=== PATIENT | female | born 1945 | race Caucasian/White ===

== ENCOUNTER 2017-02-06 05:47 | Day surgery (SDC) | payer OTHER ==
[2017-01-21 09:42] VITALS: Ht 160 cm; Wt 69.3 kg
--- NOTE | 2017-01-21 10:19 | PAT Medication Instructions ---
Service Date Jan 21, 2017. Current Home Medication List Albuterol (Proair Hfa), 2 PUFFS INH Q4HR PRN Mykbxki-Rwtwxowspqgpb-Lyxglloy (Excedrin Extra Strength), 1 TAB PO PRN B-Complex Vitamins (Vitamin B Complex), 1 TAB PO QAM Cholecalciferol (Vitamin D3), 1,000 UNIT PO QAM Fexofenadine Hcl ([place] Unknown Dose), 180 MG PO QAM PRN for PRN Lorazepam (Ativan), 0.5-1 MG PO HS PRN Multiple Vitamin (Multivitamin), 1 TAB PO QAM Probiotic Product (Probiotic), 1 CAP PO PRN Selenium (Hm Selenium), 100 MCG PO QAM Simethicone (Gas-X), 80 MG PO DAILY PRN for Gas or Constipation [Biotin], 1,000 MG PO QAM [Magnesium], 250 MG PO BID PRN for PRN [Potassium], 75 MG PO QAM Medication Instructions For Your Scheduled Surgery - Check with surgeon for instructions: Zcloxzz-Fbshhvgnwvmfr-Stuyitxe (Excedrin Extra Strength), 1 TAB PO PRN - Hold the following medications the morning of surgery: [Magnesium], 250 MG PO BID PRN for PRN [Potassium], 75 MG PO QAM [Biotin], 1,000 MG PO QAM Selenium (Hm Selenium), 100 MCG PO QAM Simethicone (Gas-X), 80 MG PO DAILY PRN for Gas or Constipation Probiotic Product (Probiotic), 1 CAP PO PRN Multiple Vitamin (Multivitamin), 1 TAB PO QAM B-Complex Vitamins (Vitamin B Complex), 1 TAB PO QAM Cholecalciferol (Vitamin D3), 1,000 UNIT PO QAM Fexofenadine Hcl ([place] Unknown Dose), 180 MG PO QAM PRN for PRN - Take the following medications the morning of surgery with a sip of water: Lorazepam (Ativan), 0.5-1 MG PO HS PRN (if needed) Albuterol (Proair Hfa), 2 PUFFS INH Q4HR PRN (use if needed; bring with you to hospital morning of surgery) - Take the following medications as scheduled the night before surgery: [Magnesium], 250 MG PO BID PRN for PRN (if needed) Simethicone (Gas-X), 80 MG PO DAILY PRN for Gas or Constipation (if needed) Probiotic Product (Probiotic), 1 CAP PO PRN (if needed) Lorazepam (Ativan), 0.5-1 MG PO HS PRN (if needed) Fexofenadine Hcl ([place] Unknown Dose), 180 MG PO QAM PRN for PRN (if needed) Albuterol (Proair Hfa), 2 PUFFS INH Q4HR PRN (if needed) If you have any questions please call us at [phone] or [phone] or [phone]
[2017-01-21 11:54] LABS: BASO % 0.3 %; BASO ABS # 0.02 K/uL (0-0.2); COMPLETE YES; EOS % 0.8 %; HEMATOCRIT 45.7 % (37-47); IG% 0.3 %; LYMPH % 23.2 %; LYMPH ABS # 1.53 K/uL (1.2-3.4); MEAN CELL VOLUME 92.1 fL (80-100); MEAN CORPUSCULAR HEMOGLOBIN 30.6 pg (25-34); MEAN CORPUSCULAR HGB CONC 33.3 g/dl (32-36); MEAN PLATELET VOLUME 10.8 fL (7.4-10.4); MONO % 8.3 %; NEUT % 67.1 %; PLATELET COUNT 405 K/uL (130-400); RED BLOOD COUNT 4.96 M/uL (4.2-5.4)
[2017-01-21 12:03] LABS: INR 0.9 (0.9-1.1); PARTIAL THROMBOPLASTIN RATIO 1.2
[2017-01-21 12:14] LABS: BUN/CREATININE RATIO 18.6 (10-20); CALCIUM 9.6 mg/dl (8.5-10.1); CREATININE 0.74 mg/dl (0.60-1.20); POTASSIUM 3.8 mmol/L (3.5-5.1)
--- NOTE | 2017-02-05 15:33 | History and Physical ---
History & Physical Date Feb 05, 2017. Chief Complaint right foot pain History of Present Illness The patient is a 71 year old female with complaints of right great toe pain. She had x-rays which noted DJD of the 1st MTP joint. She was treated conservatively with activity modification, injections, NSAIDS but she failed conservative management. She is being set up for surgical tx. Past Medical/Surgical History Surgical Problems: (1) History of colon resection Allergies Coded Allergies: Sucralfate (Verified Allergy, Severe, throat swelling and pain, 01/21/17) Carbapenems (Verified Allergy, Intermediate, can't tolerate, 01/21/17) Cephalosporins (Verified Allergy, Intermediate, can't tolerate, 01/21/17) Penicillins (Verified Allergy, Intermediate, HIVES, 01/21/17) Omeprazole (Verified Allergy, Unknown, UNKNOWN, 01/21/17) tingling of lips and tongue Pseudoephedrine (Verified Allergy, Unknown, UNKNOWN, 01/21/17) insomnia, dry mouth and tongue, anxious Alendronate (Verified Adverse Reaction, Mild, ACID REFLUX, 01/21/17) Prochlorperazine (Verified Adverse Reaction, Unknown, JAW PAIN;SPASM OF LIP, 01/21/17) Home Medications Scheduled Albuterol (Proair Hfa), 2 PUFFS INH Q4HR PRN Aixtvat-Ltleizacvuihq-Lotxhbbg (Excedrin Extra Strength), 1 TAB PO PRN B-Complex Vitamins (Vitamin B Complex), 1 TAB PO QAM Cholecalciferol (Vitamin D3), 1,000 UNIT PO QAM Lorazepam (Ativan), 0.5-1 MG PO HS PRN Multiple Vitamin (Multivitamin), 1 TAB PO QAM Probiotic Product (Probiotic), 1 CAP PO PRN Selenium (Hm Selenium), 100 MCG PO QAM [Biotin], 1,000 MG PO QAM [Potassium], 75 MG PO QAM Scheduled PRN Fexofenadine Hcl ([place] Unknown Dose), 180 MG PO QAM PRN for PRN Simethicone (Gas-X), 80 MG PO DAILY PRN for Gas or Constipation [Magnesium], 250 MG PO BID PRN for PRN Physical Examination Skin: warm/dry, no rash Eyes: normal inspection Head: normocephalic, atraumatic Neck: supple Respiratory/Chest: lungs clear, normal breath sounds, no respiratory distress Cardiovascular: regular rate, rhythm, no murmur Abdomen / GI: normal bowel sounds, non tender Extremities: + pertinent finding (Right foot: swelling of the 1st MTP joint. Tender to palpation at the 1st MTP. Pain with PROM and AROM of the 1st MTP joint. Crepitation noted.) Neurologic/Psych: no motor/sensory deficits, alert, oriented x 3 Diagnosis Right 1st MTP DJD/Hallux rigidus. Plan of Treatment Recommend a right 1st MTP Arthrosurface hemiarthroplasty. All potential risks, benefits, complications, alternatives and rehab have been discussed and the patient wishes to proceed. She will be schedule for 02.06.17 with ASA 81 mg BID for 4 wks post op for DVT prophylaxis.
[~2017-02-06] VITALS: Ht 160 cm; Wt 69.3 kg
[~2017-02-06 05:47] MED LIST: ALBU1AER9 INH; ALLGUNK PO; ASPI-391 PO; ATV/1 PO; B-COTAB18 PO; BIOTPOW17 PO; MAGNESIUM PO; MISCCAP80 PO; MULTTAB58 PO; POTASSIUM PO; SELE1TAB10 PO; SIME80CH PO; VTMD1000 PO
[2017-02-06] MEDS ORDERED: CLINDAMYCIN 600 MG/54 ML D5W IV SCH (06:00)
[2017-02-06] MEDS ORDERED: LACTATED RINGER'S 1000ML 1,000 ML IV SCH (06:00)
[2017-02-06] MEDS ORDERED: ONDANSETRON INJ 2 MG/ML 2 ML VIAL IV PRN (06:15)
[2017-02-06] MEDS ORDERED: HYDROmorphone INJ 1 MG/ML SYR IV PRN (06:15)
[2017-02-06] MEDS ORDERED: FENTANYL CITRATE INJ 50 MCG/1 ML 2 ML VIAL IV PRN (06:15)
[2017-02-06] MEDS ORDERED: ATROPINE SULFATE 0.1 MG/ML 5ML SYR IV PRN (06:15)
[2017-02-06] MEDS ORDERED: DEXT30TA7 PO (06:31)
[2017-02-06] MEDS ORDERED: BACITRACIN 50000 UNIT VIAL ONE (06:55)
[2017-02-06] MEDS ORDERED: DEXAMETHASONE SOD INJ 4 MG/ML VIAL ONE (07:02)
[2017-02-06] MEDS ORDERED: ONDANSETRON INJ 2 MG/ML 2 ML VIAL ONE (07:02)
[2017-02-06] MEDS ORDERED: PROPOFOL IV EMULSION 10 MG/ML 20 ML VIAL IV ONE (07:02)
[2017-02-06] MEDS ORDERED: LIDOCAINE HCL 2% 2 ML VIAL (20MG/ML) ONE (07:02)
[2017-02-06] MEDS ORDERED: FENTANYL CITRATE INJ 50 MCG/1 ML 2 ML VIAL ONE (07:03)
[2017-02-06] MEDS ORDERED: MIDAZOLAM HCL 1 MG/ML 2ML VIAL ONE (07:03)
--- NOTE | 2017-02-06 07:04 | DIAGNOSTIC IMAGING REPORT ---
TWO VIEW CHEST CLINICAL HISTORY: Preoperative examination. FINDINGS: PA and lateral chest radiographs are compared to chest x-ray and chest CT dated 10/04/2015. The cardiomediastinal silhouette is unremarkable. There is atherosclerotic calcification of the thoracic aorta. The lungs and pleural spaces are clear. There is no pneumothorax. The skeletal structures are osteopenic. There are healed right-sided rib fractures. Cholecystectomy clips are noted in the right upper quadrant. IMPRESSION: No active disease in the chest. Electronically signed by: Facundo Sanches M.D. 02/06/2017 7:03 AM Dictated Date/Time: 02/06/2017 7:02 AM
[2017-02-06] MEDS ORDERED: ROPIVACAINE 0.5% 5 MG/ML 30 ML VIAL ONE (07:15)
--- NOTE | 2017-02-06 07:28 | History & Physical Bridge Note ---
H&P Re-Evaluation Bridge Note: I have examined the patient, reviewed the History & Physical and in the interval since the performance of the History & Physical I have noted the following changes of clinical significance: No changes noted
[2017-02-06] MEDS ORDERED: ASPEC81 PO (08:07)
[2017-02-06] MEDS ORDERED: OXYC-57 PO (08:07)
--- NOTE | 2017-02-06 08:10 | Discharge Instructions ---
Discharge Instructions Date of Service Feb 06, 2017. Admission Reason for Admission: Right Great Toe Degenerative Joint Disease; Hallux Discharge Discharge Diagnosis / Problem: Right great toe degenerative joint disease Discharge Goals Goal(s): Decrease discomfort, Improve function Activity Recommendations Activity Limitations: per Instructions/Follow-up section Weightbearing Status: Right partial (Heel Weightbearing only in post op shoe) . Instructions / Follow-Up Instructions / Follow-Up ACTIVITY RECOMMENDATIONS: Limitations: Heel weight bearing only if able to tolerate. SPECIAL CARE INSTRUCTIONS: * You may start gentle passive range of motion with the right great toe after 3 days. You may use your hands for gentle motion of the toe. * Some drainage onto the dressing is normal and is no cause for alarm. * Some swelling is natural especially after walking. * When resting, keep your foot elevated above the level of your heart. * Call [facility] if you notice: -Increased drainage -Fever over 101 degrees F -Severe constant pain BANDAGE: * Leave bandage/cast in place unless otherwise directed. * Keep bandage/cast dry at all times. PIN CARE: * Leave pins alone. * If pins come loose or fall out, notify physician. FOLLOW UP VISIT WITH DR. ESPINOSA If appointment is not already scheduled: Please call [facility] after you get home today to schedule a follow-up appointment for [address] Espinosa at . Current Hospital Diet Patient's current hospital diet: Discharge Diet Recommended Diet: Regular Diet Procedures Procedures Performed: Right Great Toe 1st Metatarsophalangeal Arthrosurface Hemiarthroplasty Pending Studies Studies pending at discharge: no Medical Emergencies . Who to Call and When: Medical Emergencies: If at any time you feel your situation is an emergency, please call 911 immediately. . Non-Emergent Contact Non-Emergency issues call your: Surgeon Call Non-Emergent contact if: temperature is above 101, your pain is not controlled, your pain is worsening, wound has increased drainage . "Provider Documentation" section prepared by Jeancarlos Rudolph. . VTE Core Measure Inpt VTE Proph given/why not?: Other Anticoagulation (Aspirin)
[2017-02-06] MEDS ORDERED: OXYCODONE/ACETAMINOPHEN 5-325 TAB PO PRN (08:15)
[2017-02-06] MEDS ORDERED: EpHEDrine SULFATE 50MG/5ML SYR ONE (09:14)
[2017-02-06] MEDS ORDERED: PHENYLEPHRINE 100MCG/ML 5ML SYR ONE (09:14)
--- NOTE | 2017-02-06 09:35 | Anesthesiology Progress Note ---
Anesthesia Post Op Note Date & Time Feb 06, 2017 at 09:35 Vital Signs Pain Intensity: 0 Vital Signs Past 12 Hours Date Time Temp Pulse Resp B/P (MAP) Pulse Ox O2 Delivery O2 Flow Rate FiO2 02/06/17 09:25 78 16 144/79 99 Nasal Cannula 2 02/06/17 09:15 82 18 136/77 99 Oxymask 10 02/06/17 09:06 36.7 82 18 143/86 99 Oxymask 10 Notes Mental Status: alert / awake / arousable, participated in evaluation Pt Amnestic to Procedure: Yes Nausea / Vomiting: adequately controlled Pain: adequately controlled Airway Patency, RR, SpO2: stable & adequate BP & HR: stable & adequate Hydration State: stable & adequate Anesthetic Complications: no major complications apparent
--- NOTE | 2017-02-06 09:36 | [facility] Operative Report ---
Operative Report Operative Date Feb 06, 2017. Pre-Operative Diagnosis Right Great Toe 1st Metatarsophalangeal degnerative joint disease, Hallux Rigidus Post-Operative Diagnosis Right Great Toe 1st Metatarsophalangeal degnerative joint disease, Hallux Rigidus Procedure(s) Performed Right Great Toe 1st Metatarsophalangeal Arthrosurface Hemiarthroplasty Surgeon Dr. Carias Brim Buster Surgeon(s) Jeancarlos Rudolph PA-C Estimated Blood Loss 1 ML Findings See dictation Specimens NONE Drains none Anesthesia Gen. LMA with popliteal block Complication(s) None Disposition Recovery Room / PACU Indications This is a 71-year-old female who's had chronic progressive and worsening right foot pain and deformity. His had worsening arthritis and failed all conservative measures including anti-inflammatories, rest, shoewear modification , steroid injections, activity modification, ice and elevation. She had radiographic evidence of near-complete loss of the joint space the first metatarsophalangeal joint with associated marginal osteophytes and subchondral sclerosis. She was scheduled for surgery as indicated. Description of Procedure All potential risks, benefits, complications, alternatives, rehabilitation, potential for incomplete relief of symptoms, need for further surgery, persistent numbness, weakness, stiffness, persistent pain, DVT, PE, , bone fracture, hardware breakage, nonunion, malunion or wound complications were discussed with the patient. The patient decided to proceed with the procedure as indicated. Procedure: The patient was taken to the operative suite and placed supine on the operating table. She received a popliteal block in the preoperative holding area. The right lower extremity was then sterilely prepped and draped in usual fashion after defecation the proper operative site and review of the consent. Right lower extremity was then exsanguinated with Esmarch bandage and an Esmarch tourniquet was applied over sterile surgical tile at level of the ankle. 15 blade scalpel was used to make an incision of the dorsum the right foot first metatarsalgia joint. This incision was then deepened to the subcutaneous tissue. Meticulous hemostasis was achieved with cautery. Extensor hallucis longus identified, freed with a scalpel and careful dissection around the tendon and retracted laterally with a weave manner. Next the dorsal capsule was then incised with 15 blade scalpel and elevated both medially and laterally. The hypertrophic synovial lining was then resected with a rongeur. Next the articular surfaces were examined and noted to have significant degenerative arthropathy. There is near complete articular cartilage loss. Marginal osteophytes and resected with a rongeur. Next underlie fluoroscopic assistance guidepin was placed within the central canal of the first metatarsal. This then followed by drilling of the first metatarsal with a graduated drill. Next irrigation was performed with sterile normal saline. The threaded posts was then inserted and the first metatarsal and countersunk approximately 1.2 mm. As then followed by measurement of the metatarsal head and the appropriate trial sizers and selected. Next dorsiflexion reamer was then placed central post of the threaded posts of the first metatarsal and reamed. Next the central reamer was also then performed over the threaded posts. Next the trial component was then inserted and threaded posts and then a sagittal saw was in used to resect marginal osteophytes circumferential fashion around the first metatarsal. Next a rongeur was used to resect marginal osteophytes surrounding the base of the proximal phalanx the great toe. Next the wound was scoped with sterile normal saline until clear. This and followed by removal of the trial implant and then implantation of the final component first metatarsal threaded posts. Range of motion was noted to be approximately 90 of dorsiflexion and 20 plantarflexion with stability noted in varus and valgus stress test. Final radiographs were obtained noting appropriate implantation of the components. The dorsal capsule was then closed using interrupted 3-0 Vicryl sutures. Skin was then closed using 4-0 nylon. Sterile compressive forefoot dressing was applied overwrapped with Coban. The tourniquet was released, the patient was awakened and taken to recovery. I attest to the content of the Intraoperative Record and any orders documented therein. Any exceptions are noted below.
[2017-02-06 09:55] VITALS: BP 143/68; PULSE 79; TEMP 36.6; O2SAT 97
--- NOTE | 2017-02-06 09:55 | DIAGNOSTIC IMAGING REPORT ---
RIGHT FOOT 3 VIEWS CLINICAL HISTORY: Postoperative examination. First metatarsophalangeal joint hemiarthroplasty. FINDINGS: 3 views of the right foot are obtained. No prior studies are available for comparison at the time of dictation. The skeletal structures are osteopenic. A hemiarthroplasty has been placed at the first metatarsophalangeal joint. The arthroplasty is in near-anatomic alignment. No acute fracture is seen. The joint spaces of the foot are otherwise well-maintained. Mild degenerative spurring is seen along the dorsal aspect of the tarsal bones. Soft tissue swelling and subcutaneous gas in the forefoot are expected postoperative findings. IMPRESSION: 1. Expected postoperative findings status post hemiarthroplasty at the first metatarsophalangeal joint. 2. No fracture is seen. Electronically signed by: Facundo Sanches M.D. 02/06/2017 9:54 AM Dictated Date/Time: 02/06/2017 9:52 AM
[2017-02-06 10:25] VITALS: BP 131/63; PULSE 81; O2SAT 97
[2017-02-06 10:55] VITALS: BP 139/59; PULSE 93; TEMP 36.6; O2SAT 96
--- NOTE | 2017-02-06 12:29 | DIAGNOSTIC IMAGING REPORT ---
RIGHT TOE(S) MIN 2 VIEWS CLINICAL HISTORY: RIGHT 1ST METATARSOPHALANGEAL ARTHROSURFACE HEMIARTHROPLASTY COMPARISON STUDY: None. Fluoroscopy time: 9 seconds. FINDINGS: 2 fluoroscopic images demonstrate expected findings following right first metatarsophalangeal joint hemiarthroplasty with hardware within the right first metatarsal. Alignment is anatomic. There is no fracture or unexpected radiopaque foreign body. IMPRESSION: Expected findings following right first metatarsophalangeal joint hemiarthroplasty. Electronically signed by: Jax Mitchell M.D. 02/06/2017 12:27 PM Dictated Date/Time: 02/06/2017 12:26 PM
== END 2017-02-06 11:15 | disposition home or self-care (01) ==
LOC: C.ACU 05:47
PROVIDERS: ATTEND Orthopaedic Surgery Sports Medicine
DX: M19.071 Primary osteoarthritis, right ankle and foot (principal); M20.21 Hallux rigidus, right foot; E78.5 Hyperlipidemia, unspecified; K44.9 Diaphragmatic hernia without obstruction or gangrene; K21.9 Gastro-esophageal reflux disease without esophagitis; M19.90 Unspecified osteoarthritis, unspecified site; Z87.442 Personal history of urinary calculi; Z80.42 Family history of malignant neoplasm of prostate; M81.0 Age-related osteoporosis without current pathological fracture; H40.9 Unspecified glaucoma; Z98.41 Cataract extraction status, right eye; Z90.710 Acquired absence of both cervix and uterus

== ENCOUNTER → 2018-03-01 | Outpatient (CLI) | payer OTHER ==
[~2018-03-01] MED LIST changes: +ASPI-320 PO; +DEXT30TA7 PO
--- NOTE | 2018-03-09 12:51 | CODING QUERY NO DIAGNOSIS ---
TREATMENT RENDERED WITHOUT A DIAGNOSIS To promote full compliance with coding requirements relating to patient care, physician participation is requested in all cases of fraud manager uncertainty. Please assist us with providing a diagnosis/symptom for the test(s) below: A diagnosis/symptom was not documented on your Order. A valid diagnosis/symptom is required to bill all insurances. Please remember that we are unable to code a diagnosis of rule out, probable, possible, questionable, or suspected. Tests that require a diagnosis: DOS: 03/01/18 (Attached form is missing physician's signature and diagnosis) * Tissue Biopsy DIAGNOSIS: Provider Signature: Date: Thank you Rupali Tamayo Health Information Management Once completed, please kindly fax back to [phone] For questions please call [phone]
== END | disposition home or self-care (01) ==
LOC: C.PATHSPEC 17:50
PROVIDERS: ATTEND Dentist Oral and Maxillofacial Surgery
DX: K13.29 Other disturbances of oral epithelium, including tongue (principal)